=== PATIENT | female | born 1965 | race Caucasian/White ===

== ENCOUNTER 2025-01-26 12:41 | Emergency (ER) | payer SELFPAY ==
[~2025-01-26] VITALS: Ht 160 cm; Wt 68.0 kg
[2025-01-26 12:43] VITALS: TEMP 36.8; O2SAT 100
[2025-01-26 13:44] VITALS: BP 150/94
[2025-01-26] MEDS: IBUPROFEN 600MG TABLET PO ONE (13:44)
[2025-01-26 15:05] VITALS: PULSE 78; RESP 14; O2SAT 100
[2025-01-26] MEDS ORDERED: IBUP-1455 MT (15:45)
== END 2025-01-26 16:15 | disposition home or self-care (01) ==
LOC: ER 13:08
DX: R07.89 Other chest pain (principal); M25.512 Pain in left shoulder; M79.602 Pain in left arm; M79.642 Pain in left hand; M25.552 Pain in left hip; M79.662 Pain in left lower leg
CPT/HCPCS: 71101; 72100; 73000; 73030; 73060; 73502; 99284